=== PATIENT | male | born 1980 | race Caucasian/White ===

== ENCOUNTER 2016-09-21 15:16 | Emergency (ER) | payer OTHER ==
[2016-09-21 15:25] VITALS: BP 151/89; PULSE 7; RESP 18; TEMP 98; O2SAT 98
[2016-09-21] MEDS ORDERED: TDAP Vaccine 0.5 mL Syr IM ONE (15:54)
--- NOTE | 2016-09-21 15:59 | ED PDOC ---
HPI: Skin/Bite Injury Time Seen by Provider: 09/21/16 15:42 Chief Complaint (Nursing): Abnormal Skin Integrity Chief Complaint (Provider): Abscess - Left axilla x 3 days History Per: Patient History/Exam Limitations: no limitations Onset/Duration Of Symptoms: Days Current Symptoms Are (Timing): Still Present Quality Of Symptoms: Painful Severity: Moderate Additional Complaint(s): Pt states he had similar in the past and was given antibiotics. PT states it was not opened. PT denies fever/chills. PT has not been using warm compresses. Past Medical History Reviewed: Historical Data, Nursing Documentation, Vital Signs Vital Signs: Last Vital Signs Temp 98 F 09/21/16 15:20 Pulse 7 L 09/21/16 15:20 Resp 18 09/21/16 15:20 BP 151/89 H 09/21/16 15:20 Pulse Ox 98 09/21/16 16:54 - Medical History PMH: No Chronic Diseases - Home Medications Home Medications: Ambulatory Orders Medication Instructions Recorded Sulfamethoxazole/Trimethoprim 1 each PO BID #20 tablet 09/21/16 [Bactrim 400-80 mg Tablet] - Allergies Allergies/Adverse Reactions: Allergies Allergy/AdvReac Type Severity Reaction Status Date / Time No Known Allergies Allergy Verified 09/21/16 15:20 - ECG O2 Sat by Pulse Oximetry: 98 Disposition - Clinical Impression Clinical Impression: Abscess, Tetanus toxoid vaccination administered at current visit - Patient ED Disposition Is Patient to be Admitted: No - Disposition Referrals: [facility] [Outside] Disposition: Routine/Home Disposition Time: 15:57 Condition: GOOD Additional Instructions: Warm compresses. Prescriptions: Sulfamethoxazole/Trimethoprim [Bactrim 400-80 mg Tablet] 1 each PO BID #20 tablet Instructions: Abscess (ED) Forms: [facility] ED School/Work Excuse
== END 2016-09-21 16:30 | disposition home or self-care (01) ==
LOC: H.ER 15:16
DX: L02.412 Cutaneous abscess of left axilla (principal)